=== PATIENT | male | born 1980 | race Caucasian/White ===

== ENCOUNTER → 2020-08-22 11:37 | Outpatient (BNVA) | payer OTHER, SELFPAY | PROVIDERS: Family Provider Nurse Practitioner; Visit Provider Nurse Practitioner Family | DX: J06.9 Acute upper respiratory infection, unspecified (principal); Z20.828 Contact with and (suspected) exposure to other viral communicable diseases | CPT/HCPCS: 87635 ==

== ENCOUNTER 2020-10-14 14:16 | Emergency (ER) | payer OTHER, SELFPAY ==
[2020-10-14 14:28] VITALS: BP 132/92; PULSE 88; RESP 18; TEMP 37.2; O2SAT 98; BMI 27.1
--- NOTE | 2020-10-14 15:36 | ED_ITS ---
HPI - Dental/Oral General: Chief complaint: Airway/Esophagus Foreign Body Stated complaint: dental pain Time Seen by Provider: 10/14/20 14:52 Source: patient Mode of arrival: ambulatory Limitations: no limitations History of Present Illness: HPI Narrative: 40-year-old male patient presents to the emergency department with longstanding history of patches in his throat and in his mouth. He has ENT appointment on 10/20/[address] Steinberg. He reports previous appointments made with ENT but was not able to make them due to work schedule. He reports 4 to 6-month history of this complaint. He reports white patches in his mouth that are painful. He was states attempted [id number] ibuprofen, miracle mouthwash that was left over from previous prescription from family member and Tylenol without improvement. He denies trauma or injury that initiated the complaint. He states receives routine dental care with last dental follow-up 1 year ago. He does utilize tobacco substances. He reports worsening pain to the oral mucosa x2 days. He reports chews tobacco, does not smoke. He reports able to swallow but experiences discomfort. He denies inability to swallow or difficulty breathing. Denies fever chills Onset (ago): day(s) (2) Duration: constant Severity: moderate Relieving factors: NSAIDs Exacerbating factors: chewing and swallowing Associated symptoms: Reports gum swelling, odynophagia and sore throat; Denies fever(s) Treatment prior to arrival: topical analgesic Review of Systems General: Reports: 10 or more systems reviewed and unremarkable except in HPI and below Const: Denies: fever(s), chills or diaphoresis Eyes: Denies: blurry vision or eye redness ENMT: Reports: odynophagia, mouth pain and oral sores; Denies: throat pain, dental pain, halitosis, disequilibrium, nasal discharge, nasal congestion or nasal obstruction Card: Denies: chest pain, palpitations or irregular heart rhythm Resp: Denies: dyspnea, productive cough, non-productive cough or wheezing GI: Denies: abdominal pain, nausea or vomiting : Denies: dysuria Musc: Denies: back pain Skin/Breast: Denies: rash, pruritus or skin tenderness Neuro: Denies: headache(s), weakness in extremities or behavioral changes Psych: Denies: anxiety, depression or change in appetite Edwin/Lymph: Denies: easy bruising PFSH ED PFSH: Medical History HTN (hypertension) Physical Exam Const: COMMON NORMALS: no acute distress, average body habitus, patient oriented x3, healthy appearing, alert and well nourished EXAM LIMITATIONS: no behavioral limitations and no physical limitations GENERAL APPEARANCE: cooperative, comfortable, well kempt, well developed and well hydrated; not anxious, not ill appearing and not frail appearing ORIENTATION/CONSCIOUSNESS: Yes awake, Yes oriented to person, Yes oriented to place and Yes oriented to time HENMT: COMMON NORMALS: normocephalic, atraumatic, external ears normal, EAC's normal, TM's normal bilaterally, Normal external nose present and moist oral mucous membranes HEAD & SCALP: normal to inspection, normocephalic and atraumatic FACE & SINUS: normal facial exam; no sinus tenderness NOSE: Normal external nose present and Normal nares present EXTERNAL EAR: Yes external ears normal EXTERNAL AUDITORY CANAL: EAC's normal TYMPANIC MEMBRANE: TM's normal bilaterally MOUTH: lip normal, tongue normal and Abnormal oral and palatal mucosa present (White patch with erythematous base to the left posterior pharynx) erythematous (Base), white patches and other (Also present to the first second and third molar upper gumline); no palatal petechiae and no lacerations; no drooling, lip not abnormal and no muffled voice THROAT: uvula midline Eye: COMMON NORMALS: Equal, round and reactive pupils present and EOMs intact bilaterally GENERAL EYE: appearance normal, both eyes and all related structures PUPIL: Yes Equal, round and reactive pupils present Neck/C-Spine: COMMON NORMALS: full ROM, no lymphadenopathy, supple and no meningeal signs GENERAL: Yes normal visual inspection and Yes trachea midline CERVICAL SPINE: Yes cervical ROM normal Lymph: LYMPHATIC: no lymphadenopathy noted Chest: COMMONS NORMALS: normal inspection of the chest and normal palpation of entire chest wall CHEST: No localized rib tenderness with anteroposterior compression Resp: COMMON NORMALS: normal respiratory effort, No retractions, No use of accessory muscles and clear to auscultation bilaterally EFFORT & INSPECTION: Yes able to speak in complete sentences, No labored and No audible wheezes AUSCULTATION: clear to auscultation bilaterally Cardio: COMMON NORMALS: regular rate, regular rhythm, S1 normal heart sound present, S2 normal heart sound present and Peripheral pulses 2+ throughout RA TE: regular rate RHYTHM: regular rhythm HEART SOUNDS: S1 normal heart sound present and S2 normal heart sound present PERIPHERAL PULSES: Peripheral pulses 2+ throughout GI: COMMON NORMALS: Normal to inspection, nondistended, normoactive bowel sounds present, Soft to palpation and non-tender INSPECTION: Yes normal to inspection and No central obesity PALPATION: Yes Soft to palpation : COMMON NORMALS: Yes no CVA tenderness BLADDER/KIDNEY EXAM: Yes no CVA tenderness Back/Pelvis: COMMON NORMALS: no CVA tenderness and thoracic and lumbar spine normal to inspection Extremity: COMMON NORMALS: normal to inspection and capillary refill normal Neuro: COMMON NORMALS: patient oriented x3 and no focal motor deficits SENSORIUM/ORIENTATION: Yes alert, Yes oriented to person, Yes oriented to place and Yes oriented to time MENINGEAL SIGNS: Yes no meningeal signs Psych: COMMON NORMALS: mental status grossly normal, Normal thought process present and cooperative APPEARANCE: Yes well kempt ACTIVITY/MOTOR BEHAVIOR: Yes appropriate eye contact THOUGHT PROCESS: Normal thought process present Skin: COMMON NORMALS: no rashes or lesions noted and turgor normal GENERAL SKIN EXAM: no rashes or lesions noted and turgor normal Course Vital Signs: Vital signs: Vital Signs Temperature 99.0 F 10/14/20 14:28 Pulse Rate 80 10/14/20 15:54 Respiratory Rate 16 10/14/20 15:54 Blood Pressure 132/92 10/14/20 15:54 Pulse Oximetry 98 10/14/20 15:54 MDM - Dental/Oral MDM Narrative: Medical decision making narrative: Oral lesions similar to that of lichen planus. He does engage in smokeless tobacco products which increases his risk for oral cancer. He did not reveal lymphadenopathy or weight loss, does experience pain. He has an appointment on 10/20/[address] Steinberg for evaluation of abnormality. He was prescribed betamethasone to apply tactically with Q-tip. Discussed to return to the emergency room immediately if he develops worsening symptoms such as swelling under the chin lymphadenopathy or other concerning symptoms. He was placed prophylactically on Augmentin. He is requesting sooner appointment with ENT, I advised would place consult with social media community manager to see if sooner appointment could be made. 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 Condition: Stable Prescriptions: New Augmentin 875-125 mg tablet 1 tab PO BID Qty: 20 RF: 0 betamethasone, augmented 0.05 % gel 1 applic topical QID PRN (Reason: mouth pain) Qty: 50 RF: 0 IBU 600 mg tablet 600 mg PO TID PRN (Reason: pain) Qty: 20 RF: 0 No Action omeprazole 20 mg capsule,delayed release(DR/EC) 20 mg PO BID RF: 0 Discharge Orders: Discharge ED (Routine); Ordered 10/14/20 Ordered By: Mely Green Discharge Diet: GI Soft Discharge Activity: Limit activity as instructed Patient Instructions: Mucositis, Canker Sores (ED), Oral Mucositis (ED), Opioid Safety Activity Restrictions/Additional Instructions: Apply betamethasone 4 times daily with Q-tip to the affected area Follow-up with ENT as scheduled on October 20, 2020 Return to the emergency department if you develop difficulty breathing or inability to swallow Avoid spicy, citrus or foods that will irritate the esophagus/mucosa lining of the mouth. Biopsy will be needed to confirm diagnosis of lichen planus. Avoid tobacco products at all cost, tobacco products will increase cancer risk. Coding Level of Care Code ED Housekeeping Lead for Ronaldo Petersen
[2020-10-14 15:54] VITALS: BP 132/92; PULSE 80; RESP 16; O2SAT 98
--- NOTE | 2020-10-16 10:45 | DCPLANNER ---
Addendum entered by Syeda Childs 10/17/20 15:15: General surgery emailed case planner stating that when clinic called patient to schedule a follow up appointment for patient that patient is going to keep their appointment scheduled with Dr. Steinberg. Original Note: retail planning manager had message to schedule a follow up appointment for patient with ENT. retail planning manager emailed patients information to both Ankita and Otilia at [facility] General Surgery. Patients information will be printed and reviewed. Clinic will call patient with appointment information.
== END 2020-10-14 15:55 | disposition home or self-care (01) ==
PROVIDERS: Emergency Provider Nurse Practitioner Family
DX: L43.8 Other lichen planus (principal); I10 Essential (primary) hypertension
CPT/HCPCS: 99281

== ENCOUNTER 2024-02-14 01:08 | Inpatient (IN) | payer OTHER, SELFPAY ==
[2024-02-14] VITALS (7 sets, daily range): BP systolic 129–146; BP diastolic 85–95; PULSE 90–108; RESP 16–18; TEMP 36.2–36.6; O2SAT 96–98; BMI 24.0
[2024-02-14 01:36] LABS: Basophils # 0.1 10^3/uL (0.0-0.1); Basophils % 0.5 %; Eosinophils # 0.1 10^3/uL (0.0-0.8); Eosinophils % 1.1 %; Hematocrit 51.1 % (37-53); Lymphocytes # 2.2 10^3/uL (0.8-4.8); Lymphocytes % 24.3 %; Mean Corpuscular HGB Conc 33.7 g/dL (30-55); Mean Corpuscular Hemoglobin 27.9 pg (27-33); Mean Corpuscular Volume 82.8 fl (82-101); Mean Platelet Volume 8.3 fL (7.4-10.4); Monocytes # 0.5 10^3/uL (0.2-0.9); Monocytes % 5.5 %; Neutrophils # 6.29 10^3/uL (1.8-7.7); Neutrophils % 68.3 %; Nucleated Red Blood Cells % 0 %; Platelet Count 409 10^3/cmm (157-399); Red Blood Count 6.17 10^6/uL (3.85-5.65); Red Cell Distribution Width 14.5 % (12.1-15.1); White Blood Count 9.22 10^3/uL (3.29-11.43)
--- NOTE | 2024-02-14 01:52 | ED.C_ITS ---
HPI - Psych 2 General: Chief Complaint: Psychiatric Symptoms Stated Complaint: MHE Time Seen by Provider: 02/14/24 01:11 Source: patient Mode of arrival: ambulatory Limitations: no limitations History of Present Illness: 43-year-old male is here on a court orde red 96-hour hold. Patient has a history of schizophrenia per the 96-hour hold he had made threats to kill himself and sent a picture of a coin and states he is going to flip it if it landed on a certain thing he was going to kill himself. Patient here states that he had not been taking his meds and states that he thinks his has been trying to poison him. Associated symptoms: Reports suicidal ideation; Deny depression Review of Systems 2 Const: Denies: fever(s), chills, body aches or change in appetite ENMT: Denies: throat pain or dental pain Card: Denies: chest pain Resp: Denies: dyspnea GI: Denies: abdominal pain, nausea, vomiting or diarrhea Musc: Denies: neck pain or back pain Skin/Breast: Denies: rash Neuro: Denies: headache(s) Psych: Reports: paranoia and suicidal ideation; Denies: depression PFS ED 2 PFSH: Medical History Psychiatric care HTN (hypertension) Physical Exam 2 Const: COMMON NORMALS: no acute distress, patient oriented x3 and healthy appearing HENMT: COMMON NORMALS: normocephalic and atraumatic HEAD & SCALP: n ormocephalic and atraumatic Eye: COMMON NORMALS: conjunctivae normal CONJUNCTIVA: Yes conjunctivae normal Neck/C-Spine: COMMON NORMALS: full ROM and supple Chest: COMMONS NORMALS: normal inspection of the chest Resp: COMMON NORMALS: normal respiratory effort Cardio: COMMON NORMALS: regular rate, regular rhythm and No murmurs present (Cardio) RATE: regular rate RHYTHM: regular rhythm Extremity: COMMON NORMALS: normal to inspection and full ROM Neuro: COMMON NORMALS: patient oriented x3, moves all extremities and no focal motor deficits Psych: COMMON NORMALS: mental status grossly normal and cooperative OTHER: paranoid Skin: COMMON NORMALS: no rashes or lesions noted and no wounds GENERAL SKIN EXAM: no rashes or lesions noted Course 2 Vital Signs: Vital signs: Vital Signs Temperature 97.8 F 02/14/24 01:21 Pulse Rate 108 H 02/14/24 01:21 Respiratory Rate 16 02/14/24 01:21 Blood Pressure 146/95 02/14/24 01:21 Pulse Oximetry 96 02/14/24 01:21 [facility] - Psych Medical Decision Making Patient presents here with suicidal ideations along with acute psychosis he is on a 96-hour hold is court ordered through [facility] I spoke to psychiatrist and will admit at this time. Medical Records I reviewed the patient's medical records. Lab Data I reviewed the patient's lab results. 02/14/24 01:31 02/14/24 01:31 Laboratory Results WBC 9.22 10^3/uL (3.29-11.43) 02/14/24 01:31 RBC 6.17 10^6/uL (3.85-5.65) H 02/14/24 01:31 Hgb 17.20 g/dL (11.27-16.99) H 02/14/24 01:31 Hct 51.1 % (37-53) 02/14/24 01:31 MCV 82.8 fl (82-101) 02/14/24 01:31 MCH 27.9 pg (27-33) 02/14/24 01:31 MCHC 33.7 g/dL (30-55) 02/14/24 01:31 RDW 14.5 % (12.1-15.1) 02/14/24 01:31 Plt Count 409 10^3/cmm (157-399) H 02/14/24 01:31 MPV 8.3 fL (7.4-10.4) 02/14/24 01:31 Neut % (Auto) 68.3 % 02/14/24 01:31 Lymph % (Auto) 24.3 % 02/14/24 01:31 [place] % (Auto) 5.5 % 02/14/24 01:31 Eos % (Auto) 1.1 % 02/14/24 01:31 Baso % (Auto) 0.5 % 02/14/24 01:31 Neut # (Auto) 6.29 10^3/uL (1.8-7.7) 02/14/24 01:31 Lymph # (Auto) 2.2 10^3/uL (0.8-4.8) 02/14/24 01:31 [place] # (Auto) 0.5 10^3/uL (0.2-0.9) 02/14/24 01:31 Eos # (Auto) 0.1 10^3/uL (0.0-0.8) 02/14/24 01:31 Baso # (Auto) 0.1 10^3/uL (0.0-0.1) 02/14/24 01:31 Nucleated RBC % (auto) 0 % 02/14/24 01:31 Nucleated RBCs # 0.0 /100WBC 02/14/24 01:31 No radiology studies performed this visit Discharge Plan Discharge Patient Disposition: Admitted As Inpatient Clinical Impression: Suicidal ideation, Chronic schizophrenia, Acute psychosis Condition: Stable Prescriptions: No Action omeprazole 20 mg capsule,delayed release(DR/EC) 20 mg PO BID Augmentin 875-125 mg tablet 1 tab PO BID Qty: 20 0RF Rx Instructions: take 1 PO BID betamethasone, augmented 0.05 % gel 1 applic topical QID PRN (Reason: mouth pain) Qty: 50 0RF Rx Instructions: apply to affected area QID with Q_tip IBU 600 mg tablet 600 mg PO TID PRN (Reason: pain) Qty: 20 0RF Rx Instructions: take 1 PO TID PRN pain - take with food to avoid stomach upset Coding Level of Care Code ED Transporter Driver for Ronaldo Petersen
[2024-02-14 02:01] LABS: Alanine Aminotransferase 18 U/L (0-41); Albumin Level 4.8 g/dL (3.5-5.2); Alkaline Phosphatase 114 U/L (40-130); Anion Gap 14.2 (5-19); Aspartate Amino Transferase 18 U/L (0-40); Blood Urea Nitrogen 11 mg/dL (6-20); Calcium 9.6 mg/dL (8.5-10.5); Carbon Dioxide 29 mmol/L (22-29); Chloride 100 mmol/L (98-107); Creatinine Clr Calc Pharmacy 96.3563; Globulin 2.7 g/dL (1.3-4.6); Glomerular Filtration Rate 73.1 mL/min (90-130); Glucose 119 mg/dL (65-115); Osmolality Calculated 289 mOsm/kg (285-295); Potassium 4.2 mmol/L (3.5-5.1); Sodium 139 mmol/L (136-145); Total Bilirubin 0.4 mg/dL (0.15-1.2); Total Protein 7.5 g/dL (6.6-8.7)
[2024-02-14 02:03] LABS: Acetaminophen < 5.0 ug/mL (10-30); Alcohol Level < 10 mg/dL (0-10); Salicylate < 0.3 mg/dL (3-10)
--- NOTE | 2024-02-14 02:21 | PC.NURSE ---
96 Hour Involuntary Hold Patient Rights have been read to patient and a copy of the same has been given to him. Patient verbally acknowledges understanding of Rights. Supervisor Quilting Vinicio Eason was present at bedside along with Racquel Howard at time of presentation of Rights.
--- NOTE | 2024-02-14 02:34 | PC.NURSE ---
[facility] in room at this time
--- NOTE | 2024-02-14 09:36 | PC.NURSE ---
IN BED RESTING, ATTEMPTED TO WAKE UP FOR ASSESSMENT BUT PT DECLINES TO PARTICIPATE.
[2024-02-14 15:42] LABS: Amphetamines Screen Urine Positive (Negative); Barbiturates Screen Urine Negative (Negative); Benzodiazepines Screen Urine Positive (Negative); Cocaine Screen Urine Negative (Negative); Opiate Screen Urine Negative (Negative); PCP Screen Urine Negative (Negative); THC Screen Urine Negative (Negative)
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
[2024-02-14] MEDS: OLANZapine 5 mg ODT PO (19:38)
== END 2024-02-14 21:45 | disposition home or self-care (01) | DRG 885 ==
LOC: ER 02:01 → NP 04:26
PROVIDERS: Admitting Provider Psychiatry & Neurology Psychiatry; Emergency Provider Emergency Medicine; Visit Provider Psychiatry & Neurology Psychiatry
DX: F39 Unspecified mood [affective] disorder (principal)
CPT/HCPCS: 36415; 80053; 80306; 80307; 85025; 99285